=== PATIENT | female | born 1995 | race Caucasian/White ===

== ENCOUNTER 2018-12-07 12:54 | Emergency (ER) | payer OTHER, SELFPAY ==
[2018-12-07 13:00] VITALS: BP 112/69; PULSE 86; RESP 17; TEMP 36.2; O2SAT 99; BMI 37.8
[2018-12-07 13:16] LABS: Microscopic, Urine URINE MICROSCOPIC (MICROSCOPIC)
[2018-12-07 13:19] LABS: Appearance,Urine CLEAR (Clear); Bilirubin,Urine Negative (Negative); Blood, Urine Negative (Negative); Color,Urine STRAW (Yellow); Glucose,Urine (UA) Negative (Negative); Ketones,Urine Negative (Negative); Leukocyte Esterase,Urine Negative (Negative); Nitrate,Urine Negative (Negative); Protein,Urine Negative (Negative); Urobilinogen,Urine 0.2 EU/dl (0.2)
--- NOTE | 2018-12-07 13:23 | HMH.EDGENADL ---
ED Disposition Clinical Impression: Abdominal cyst Disposition: Home, Self-Care Condition on Discharge: Good Instructions: DI for Abdominal Pain-Adult Additional Instructions: Follow-up with your primary care provider to have an outpatient MRI with pancreatic protocol for further evaluation of the cyst of your pancreas or spleen seen on CT scan. Additional instructions for ABDOMINAL PAIN: See your physician as soon as possible for further evaluation. Return immediately if worsening abdominal pain, vomiting, shortness of breath, fever, vomiting of blood or abdominal distention. Prescriptions: Ketorolac Tromethamine [Toradol 10mg tablet] 10 mg PO Q6HP PRN #10 tab PRN Reason: Moderate Pain Referrals: Manasa Edwards [Primary Care Provider] - - Critical Care Critical Care Time: No Attestation: On , the high probability of a clinically significant, sudden or life threatening deterioration of the following system(s) required my full and direct attention, intervention and personal management. The time I documented below is in addition to time spent performing reported procedures but includes the following listed in this critical care notation. Medical Decision Making - Charles Inquiry Pt receiving controlled substance: No Vital Signs: 12/07/18 13:00 12/07/18 14:17 12/07/18 15:35 Temperature 97.2 F L Temperature Source Oral Pulse Rate [Left Brachial] 86 57 L 72 Respiratory Rate 17 16 Blood Pressure [Left Arm] 112/69 95/55 L 112/71 Blood Pressure Mean [Left Arm] 83 68 84 Blood Pressure Source [Left Arm] Automatic Cuff Automatic Cuff Blood Pressure Position [Left Arm] Sitting Sitting 02 Sat by Pulse Oximetry 99 100 100 Oxygen Delivery Method Room Air Room Air - Lab Data Lab Results 12/07/18 13:08: Urine Color Straw, Urine Appearance Clear, Urine pH 7.0, Ur Specific [place] 1.010, Urine Protein Negative, Urine Glucose (UA) Negative, Urine Ketones Negative, Urine Blood Negative, Urine Nitrate Negative, Urine Bilirubin Negative, Urine Urobilinogen 0.2, Ur Leukocyte Esterase Negative, Urine WBC Occasional, Ur Squamous Epith Cells 3-5, Urine Bacteria Trace 12/07/18 13:21: WBC 8.0, RBC 4.35, Hgb 13.4, Hct 40.7, MCV 93.5, MCH 30.8, MCHC 33.0, RDW 12.5, Plt Count 249, MPV 7.5, Neut % (Auto) 64.1, Lymph % (Auto) 28.2, [place] % (Auto) 5.6, Eos % (Auto) 1.7, Baso % (Auto) 0.4, Neut # (Auto) 5.1, Lymph # (Auto) 2.3, [place] # (Auto) 0.5, Eos # (Auto) 0.1, Baso # (Auto) 0.0 12/07/18 13:21: Amylase 49, Lipase 114 12/07/18 13:21: Serum HCG, Qual Negative 12/07/18 13:21: Sodium 139, Potassium 4.1, Chloride 105, Carbon Dioxide 29, Anion Gap 9.1, BUN 11, Creatinine 0.71, Estimated Creat Clear 175, Estimated GFR 101, Est GFR ( Amer) 122, Glucose 88, Calcium 8.8, Total Bilirubin 0.3, AST 13 L, ALT 23, Alkaline Phosphatase 82, Total Protein 7.3, Albumin 3.6, Globulin 3.7 H, Albumin/Globulin Ratio 1.0 L Result diagrams: 12/07/18 13:21 12/07/18 13:21 Orders (Tests/Meds): ED MEDICATIONS Discontinued Medications Generic Name Dose Route Start Last Admin Trade Name Freq PRN Reason Stop Dose Admin Ioversol 75 ml 12/07/18 14:47 12/07/18 14:48 Rad-Optiray 350 100ml Vial IV 12/07/18 14:48 75 ml ONCE ONE Administration Protocol Ketorolac Tromethamine 30 mg 12/07/18 14:05 12/07/18 14:14 Toradol 30mg/Ml Vial IV 12/07/18 14:06 30 mg ONCE ONE Administration Sodium Chloride 1,000 ml 12/07/18 14:05 12/07/18 14:14 Sod Chlor 0.9% 1000ml Bag IV 12/07/18 14:06 1,000 ml BOLUS ONE Administration Sodium Chloride 10 ml 12/07/18 14:47 12/07/18 14:48 Rad-Saline Flush 10ml Syringe IV 12/07/18 14:48 10 ml ONCE ONE Administration - CT Data CT Scan: Abdomen, Pelvis Time Received: 15:[address] Reviewed: Yes: I have viewed the radiologist's interpretation Findings Narrative: IMPRESSION: 1. Complex lesion in the left upper quadrant as described above with soft tissue
[2018-12-07 13:31] LABS: Basophils % 0.4 % (0.1-2.0); Eosinophils # 0.1 K/mm3 (0.0-0.4); Eosinophils % 1.7 % (0.1-12.0); Hematocrit 40.7 % (37.0-47.0); Hemoglobin 13.4 g/dL (12.2-16.2); Lymphocytes # 2.3 K/mm3 (0.7-4.5); Lymphocytes % 28.2 % (10-50); Mean Corpuscular Hemoglobin 30.8 pg (27.0-31.2); Mean Corpuscular Volume 93.5 fl (81-99); Mean Platelet Volume 7.5 fl (7.4-10.4); Monocytes # 0.5 K/mm3 (0.1-1.0); Monocytes % 5.6 % (1.7-9.3); Neutrophils # 5.1 K/mm3 (1.8-7.8); Neutrophils % 64.1 % (37.0-80.0); Platelet Count 249 K/mm3 (142-424); Red Blood Count 4.35 M/mm3 (4.20-5.40); Red Cell Distribution Width 12.5 % (11.5-17.5)
--- NOTE | 2018-12-07 13:32 | CT_ITS ---
CT abdomen pelvis w con CLINICAL INDICATION: Left lower quadrant pain ITS.REASON: abdo pain ORDERING PHYSICIAN: Ace Culp MD PATIENT AGE: 23 years COMPARISON: None TECHNIQUE: Axial images obtained with sagittal and coronal reformats. All CT scans at the facility use one or more dose reduction, viz: automated exposure control, ma/kV adjustment per patient size (including targeted exams where dose is matched to indication, i.e. head), or iterative reconstruction technique. PROCEDURE: Oral Contrast: None IV Contrast: 75 mL's Optiray 350. FINDINGS: Lung bases are clear. The liver, gallbladder, spleen,, adrenal glands, and kidneys have an unremarkable appearance. In the left upper quadrant medial to the spleen and anterior to the left kidney there is a a cystic area which measures 2.5 x 3.2 cm. Along the anterior aspect of this cystic area is a crescentic area of soft tissue density. The whole area measures 3.7 x 3.5 cm including the cystic region at the soft tissue density. This is immediately adjacent to the tail the pancreas and is inseparable from the superior and left lateral aspect of the pancreas however, the soft tissue portion of the lesion has a density which is more similar to the spleen as opposed to the pancreas. This could represent a cyst within a splenule. A cyst within the tail the pancreas is also a consideration. There is no evidence of pancreatitis. No inflammatory changes evident around this area. The body and head of the pancreas has an unremarkable appearance Unremarkable appendix. No evidence of diverticulitis. No focal inflammatory change of the pelvis apparent. No pelvic mass or abnormal fluid collection. No acute bony findings. IMPRESSION: 1. Complex lesion in the left upper quadrant as described above with soft tissue and cystic component with the total mass measuring 3.7 x 3.5 cm. This may represent a cyst within a splenule or could represent a cyst within the tail the pancreas. Outpatient MRI with pancreatic protocol may give further value. 2. Otherwise negative with no acute finding
[2018-12-07 13:44] LABS: Amylase 49 U/L (25-115); HCG Qualitative, Serum Negative (Negative); Lipase 114 u/L (73-393)
[2018-12-07 13:47] LABS: Alanine Aminotransferase 23 U/L (12-78); Albumin Level 3.6 gm/dL (3.4-5.0); Alkaline Phosphatase 82 U/L (46-116); Anion Gap 9.1 mEq/L (5-15); Aspartate Amino Transferase 13 U/L (15-37); Bilirubin,Total 0.3 mg/dL (0.2-1.0); Blood Urea Nitrogen 11 mg/dL (7-18); Calcium 8.8 mg/dL (8.5-10.1); Carbon Dioxide 29 mmol/L (21.0-32.0); Chloride 105 mmol/L (98-107); Creatinine Clearance Estimated 175 mL/min (50-200); Creatinine,Serum 0.71 mg/dL (0.55-1.02); Estimated Glomerular Filt Rate 101 ml/min (>60); GFR (African American) 122 ML/MIN (>60); Globulin 3.7 gm/dl (1.3-3.2); Glucose 88 mg/dL (74-106); Potassium 4.1 mmoL/L (3.5-5.1); Sodium 139 mmol/L (136-145); Total Protein,Serum 7.3 gm/dL (6.4-8.2)
[2018-12-07 14:17] VITALS: BP 95/55; PULSE 57; RESP 16; O2SAT 100
[2018-12-07 14:45] LABS: Bacteria,Urine Trace /lpf; WBC,Urine Occasional #/hpf (0-3)
[2018-12-07 15:35] VITALS: BP 112/71; PULSE 72; O2SAT 100
[2018-12-07 16:16] VITALS: BP 124/72; PULSE 71; RESP 17; TEMP 36.6; O2SAT 98
[2018-12-12 06:23] LABS: Neisseria gonorrhoeae, NAA Negative (Negative)
== END 2018-12-07 16:19 | disposition home or self-care (01) ==
PROVIDERS: Emergency Provider Emergency Medicine; PCP Nurse Practitioner Family
DX: K66.8 Other specified disorders of peritoneum (principal); R10.30 Lower abdominal pain, unspecified; F41.8 Other specified anxiety disorders
CPT/HCPCS: 74177; 80053; 81001; 82150; 83690; 84703; 85025; 87491; 87591; 96365; 96375; 99283; Q9967

== ENCOUNTER 2021-12-01 15:47 | Emergency (ER) | payer OTHER, SELFPAY ==
[2021-12-01 16:22] VITALS: BP 102/57; PULSE 89; RESP 17; TEMP 37.2; O2SAT 95; BMI 33.6
--- NOTE | 2021-12-01 16:31 | HMH.EDUTC ---
[facility] Disposition Clinical Impression: Viral syndrome, COVID-19 Disposition: Home, Self-Care Condition on Discharge: Good Instructions: DI for COVID-19 (Suspected or Confirmed ), Preventing the Spread of Coronavirus Discharge Instructions Additional Instructions: Drink plenty of fluids. Take tylenol or ibuprofen for pain or fever. Take the medications as directed. Follow up with your regular doctor. GO TO THE ER FOR ANY WORSENING SYMPTOMS Quarantine until you know the results of your covid-19 test. Notify your school or workplace of your results and follow their instructions regarding return to work/school. Prescriptions: Brompheniramine/Pseudoephed/Dm [Bromfed Dm Cough Syrup] 5 ml PO Q6HP PRN #240 ml PRN Reason: Cough Transmission Status: Received by [id number] Ondansetron [Zofran 4mg ODT] 4 mg PO Q8HP PRN #20 tab PRN Reason: Nausea Transmission Status: Received by [id number] Benzonatate [Benzonatate 100mg cap] 100 mg PO TIDP PRN #30 cap PRN Reason: Cough Transmission Status: Received by [id number] Referrals: Manasa Edwards [Primary Care Provider] - Forms: Work/School Release Time of Disposition: 16:42 Medical Decision Making - Medical Records Medical records reviewed: No: I reviewed the patient's medical records. - Charles Inquiry Pt receiving controlled substance: No Vital Signs: 12/01/21 16:22 12/01/21 16:51 Temperature 98.9 F 98.9 F Temperature Source Oral Pulse Rate 89 Pulse Rate [Left Radial] 89 Respiratory Rate 17 17 Blood Pressure 102/57 L Blood Pressure [Right Arm] 102/57 L Blood Pressure Mean [Right Arm] 72 02 Sat by Pulse Oximetry 95 [facility] HPI - General Stated complaint: wants Covid test,Exposed,VICENTE fever Time Seen by Provider: 12/01/21 16:31 Source of Information: Patient Description of Symptoms (Recalled from Triage Doc. by RN): patient comes in today for a covid test. pateint was exposed 1 week ago. patient complains of chills, congestion, headache, vomitting, body aches. HEENT Symptoms (Recalled from RN notes): Yes Resp Symptoms (Recalled from RN notes): Yes Skin Symptoms (Recalled from RN notes): No MS Symptoms (Recalled from RN notes): No Functional Status (Recalled from RN notes): wnl - History of Present Illness Provider Complaint: She states that she was exposed to covid-19 by her neice having it and being around her about 5 days ago. She denies shortness of breath, but she is having body aches, chills, low grade fever, altered taste and smell, and she feels very fatigued. - Related Data Previous Rx's Medication Instructions Recorded Ketorolac Tromethamine [Toradol 10 mg PO Q6HP PRN #10 tab 12/07/18 10mg tablet] Benzonatate [Benzonatate 100mg 100 mg PO TIDP PRN #30 cap 12/01/21 cap] Brompheniramine/Pseudoephed/Dm 5 ml PO Q6HP PRN #240 ml 12/01/21 [Bromfed Dm Cough Syrup] Ondansetron [Zofran 4mg ODT] 4 mg PO Q8HP PRN #20 tab 12/01/21 Allergies Allergy/AdvReac Type Severity Reaction Status Date / Time No Known Allergies Allergy Verified 10/06/18 01:03 - Worker's Comp Is this a Worker's Comp case?: No [facility] History - Hepatitis A Screen Attestation statement:: This patient has been screened for Hepatitis A risk factors. I have reviewed the patient's past medical history: Yes Medical History: Reports:: Anxiety, Depression, Migraine Denies:: Diabetes Mellitus Type 1, Hyperlipidemia, Hypertension, MRSA, Seizures Laterality Cases: Bilateral: Tonsillectomy Other Surgeries: Yes: Tubal Ligation Amputation: No Fractures: No Comment: adenoectomy - Social History Smoking Status: Current every day smoker Tobacco Type: cigarettes # Packs/Day (cigarettes): 1 Alcohol Intake: never Substance Use Type: former substance user, marijuana Occupational Status: unemployed - Psychiatric History Pschychiatric History:: Reports:: Anxiety, Depression Family Hx:: Cancer, Diabet
[2021-12-01 16:51] VITALS: BP 102/57; PULSE 89; RESP 17; TEMP 37.2
== END 2021-12-01 16:51 | disposition home or self-care (01) ==
PROVIDERS: Emergency Provider Nurse Practitioner Family; PCP Nurse Practitioner Family
DX: U07.1 COVID-19 (principal); F17.210 Nicotine dependence, cigarettes, uncomplicated
CPT/HCPCS: 99212; C9803; G0463; U0003; U0005

== ENCOUNTER 2021-12-21 13:03 | Emergency (ER) | payer OTHER, SELFPAY ==
[2021-12-21 13:05] VITALS: BP 127/87; PULSE 71; RESP 18; TEMP 36.7; O2SAT 99; BMI 32.5
--- NOTE | 2021-12-21 13:14 | XR_ITS ---
FINAL REPORT CLINICAL HISTORY: RIGHT RADIAL WRIST PAIN, FINDINGS: RIGHT WRIST Three views demonstrate no acute fracture or dislocation. The visualized joint spaces are normally aligned. The soft tissues are unremarkable. IMPRESSION: No acute bony abnormality. Reviewed, Interpreted and Dictated by Jay Bah III, MD Transcribed by Francheska Self Authenticated and [facility]
--- NOTE | 2021-12-21 13:46 | PC.NURSE ---
PT TO XR AT THIS TIME
--- NOTE | 2021-12-21 14:29 | HMH.EDGENADL ---
ED Disposition Clinical Impression: Carpal tunnel syndrome Qualifiers: Laterality: right Qualified Code(s): G56.01 - Carpal tunnel syndrome, right upper limb Disposition: Home, Self-Care Condition on Discharge: Good Instructions: DI for Carpal Tunnel Syndrome Additional Instructions: Velcro wrist brace, night and day, until seen by orthopedics. Follow-up with orthopedics, Dr. Muniz, call for appointment. [id number] ibuprofen 800 mg every 8 hours. Ice packs 20 minutes 3-4 times a day. No repetitive use of hands and wrists until seen by orthopedics. Referrals: Provider,MD Vlad [Primary Care Provider] - Domingo Muniz MD [Staff Physician] - Forms: Work/School Release - Critical Care Critical Care Time: No Attestation: On 12/21/21, the high probability of a clinically significant, sudden or life threatening deterioration of the following system(s) required my full and direct attention, intervention and personal management. The time I documented below is in addition to time spent performing reported procedures but includes the following listed in this critical care notation. Medical Decision Making - Charles Inquiry Pt receiving controlled substance: No Vital Signs: 12/21/21 13:05 Temperature 98.1 F Temperature Source Temporal Artery Scan Pulse Rate [Apical] 71 Respiratory Rate 18 Blood Pressure [Right Arm] 127/87 Blood Pressure Mean [Right Arm] 100 02 Sat by Pulse Oximetry 99 Orders (Tests/Meds): ORDERS Category Date Time Status Wrist XR right minimum 3 views [XR wrist RT min 3V] Exams 12/21/21 13:14 Taken Stat - Radiology Data #1 Image(s): Wrist Image Reviewed: Yes I reviewed the patient's radiology image Preliminary interpretation by me: No acute process General Adult HPI - General Chief complaint: Extremity Injury, Upper Stated complaint: WC 12/17 rt wrist pain Time Seen by Provider: 12/21/21 14:29 Mode of Arrival: Ambulatory Limitations: No Limitations Description of Symptoms (Recalled from ER Triage Doc. by RN): PT STATES SHE INJURED HER RIGHT WRIST 3 WEEKS AGO AT WORK AND FOR THE PAST SEVERAL DAYS HAS HAD INCREASED PAIN, NUMBNESS AND TINGLING AND THE PAIN RADIATES DOWN INTO HER ELBOW. - History of Present Illness HPI narrative: States that she recently started a new job where she uses her hands and wrists a lot. For the past 3 weeks she has had some pain and tingling in her wrists and hands. Since Monday her right wrist is worse. She has increased pain in the wrist that radiates down into her hand and up into her arm. She has tingling of her right hand, particularly the thumb, index finger, and middle fingers, radial aspect of the ring finger. She feels like her right hand is weak. No blunt trauma. - Related Data Previous Rx's Medication Instructions Recorded Ketorolac Tromethamine [Toradol 10 mg PO Q6HP PRN #10 tab 12/07/18 10mg tablet] Benzonatate [Benzonatate 100mg 100 mg PO TIDP PRN #30 cap 12/01/21 cap] Brompheniramine/Pseudoephed/Dm 5 ml PO Q6HP PRN #240 ml 12/01/21 [Bromfed Dm Cough Syrup] Ondansetron [Zofran 4mg ODT] 4 mg PO Q8HP PRN #20 tab 12/01/21 Allergies Allergy/AdvReac Type Severity Reaction Status Date / Time No Known Allergies Allergy Verified 10/06/18 01:03 [facility] History - Hepatitis A Screen Attestation statement:: This patient has been screened for Hepatitis A risk factors. I have reviewed the patient's past medical history: Yes Medical History: Reports:: Anxiety, Depression, Migraine Denies:: Diabetes Mellitus Type 1, Hyperlipidemia, Hypertension, MRSA, Seizures Laterality Cases: Bilateral: Tonsillectomy Other Surgeries: Yes: Tubal Ligation Amputation: No Fractures: No Comment: adenoectomy - Social History Smoking Status: Current every day smoker Tobacco Type: cigarettes # Packs/Day (cigarettes): 1 Alcohol Intake: never Substance Use Type: former substance user, marijuana
--- NOTE | 2021-12-21 14:31 | PC.NURSE ---
ED MD AT BEDSIDE
[2021-12-21 14:50] VITALS: BP 125/87; PULSE 78; RESP 17; TEMP 36.8; O2SAT 100
== END 2021-12-21 14:52 | disposition home or self-care (01) ==
PROVIDERS: Emergency Provider Emergency Medicine
DX: G56.01 Carpal tunnel syndrome, right upper limb (principal)
CPT/HCPCS: 29126; 73110; 99283

== ENCOUNTER → 2022-01-13 14:32 | Outpatient (CLI) | payer OTHER, SELFPAY ==
--- NOTE | 2022-01-13 14:33 | US_ITS ---
FINAL REPORT CLINICAL HISTORY: heavy bleeding FINDINGS: Transvaginal sonographic images of the pelvis were obtained. The uterus measures 8.7 x 4.1 x 4.4 cm. The endometrium measures 5 mm, which is within normal limits. No uterine mass is identified. The right ovary measures 3.4 cm in length and left ovary measures 2.7 cm in length. Normal blood flow seen to the ovaries. Multiple small follicles are present in both ovaries which may represent PCOS. There is no evidence of free fluid. IMPRESSION: Multiple small follicles in both ovaries, may represent PCOS. Reviewed, Interpreted and Dictated by Jay Bah III, MD Transcribed by Teresa Blackwell Authenticated and [facility]
== END ==
PROVIDERS: PCP Nurse Practitioner Family; Visit Provider Nurse Practitioner Obstetrics & Gynecology
DX: N92.0 Excessive and frequent menstruation with regular cycle (principal)
CPT/HCPCS: 76830

== ENCOUNTER → 2022-02-09 09:57 | Outpatient (CLI) | payer OTHER, SELFPAY ==
[2022-02-09 10:39] LABS: Basophils # 0.1 K/mm3 (0-0.2); Basophils % 0.9 % (0.1-2.0); Eosinophils # 0.2 K/mm3 (0.0-0.4); Eosinophils % 1.6 % (0.1-12.0); Hematocrit 42.2 % (37.0-47.0); Hemoglobin 13.3 g/dL (12.2-16.2); Lymphocytes # 2.2 K/mm3 (0.7-4.5); Lymphocytes % 20.7 % (10-50); Mean Corpuscular HGB Conc 31.4 g/dL (31.8-35.4); Mean Corpuscular Hemoglobin 33.2 pg (27.0-31.2); Mean Corpuscular Volume 105.6 fl (81-99); Mean Platelet Volume 8.4 fl (7.4-10.4); Monocytes # 0.5 K/mm3 (0.1-1.0); Monocytes % 4.9 % (1.7-9.3); Neutrophils # 7.6 K/mm3 (1.8-7.8); Neutrophils % 71.9 % (37.0-80.0); Platelet Count 318 K/mm3 (142-424); White Blood Count 10.6 K/mm3 (4.8-10.8)
[2022-02-09 10:56] LABS: Chloride 106 mmol/L (98-107)
[2022-02-09 10:57] LABS: Potassium 4.5 mmoL/L (3.5-5.1); Sodium 141 mmol/L (136-145)
[2022-02-09 10:59] LABS: Alanine Aminotransferase 24 U/L (12-78); Alkaline Phosphatase 86 U/L (38-126); Aspartate Amino Transferase 33 U/L (14-36); Blood Urea Nitrogen 12 mg/dl (7-17); Estimated Glomerular Filt Rate 100 ml/min (>60); GFR (African American) 121 ML/MIN (>60)
[2022-02-09 11:00] LABS: Albumin Level 4.2 g/dl (3.5-5.0); Albumin/Globulin Ratio 1.6 (1.1-1.8); Anion Gap 8.5 mEq/L (5-15); Calcium 9.5 mg/dl (8.4-10.2); Carbon Dioxide 31 mmol/L (22.0-30.0); Globulin 2.6 g/dL (1.3-3.2); Glucose 92 mg/dl (74-100); Total Protein,Serum 6.8 g/dl (6.3-8.2)
[2022-02-09 11:01] LABS: Bilirubin,Total < 0.1 mg/dl (0.2-1.3)
[2022-02-10 11:20] LABS: HCG,Quantitative < 2 mIU/ml (0-5.42)
== END ==
PROVIDERS: Visit Provider Nurse Practitioner Obstetrics & Gynecology
DX: N92.0 Excessive and frequent menstruation with regular cycle (principal); Z34.90 Encounter for supervision of normal pregnancy, unspecified, unspecified trimester
CPT/HCPCS: 36415; 80053; 84702; 85025; C9803; U0003; U0005

== ENCOUNTER 2022-02-11 10:43 | Observation (INO) | payer OTHER, SELFPAY ==
[2022-02-09 10:30] VITALS: BMI 31.5
[2022-02-11] VITALS (24 sets, daily range): BP systolic 100–127; BP diastolic 54–89; PULSE 51–97; RESP 12–20; TEMP 36.2–43; O2SAT 95–100
--- NOTE | 2022-02-11 08:00 | HMH.ANESCL ---
[facility] Anesthesia Checklist - Structural Data Admitted From: Home Planned Operative Procedure/s: [facility] Consent for Planned Operative Procedure(s) Verified: Yes - Additional verifications Anesthesia Reactions: No Hx Blood Transfusions: No Blood Transfusion Reaction: No - Airway Assessment C-Spine Mobility Assessed: Yes TMJ Mobility Assessed: Yes Dentition: Good Dentition - Neurological Assessment Level of Consciousness: Awake, Alert, Appropriate - Anesthesia Plan Anesthesia Risk discussed: Yes Anesthesia Plan: Verified ASA Class: II Anesthesia Type: General w/block [facility] History I have reviewed the patient's past medical history: Yes Medical History: Reports:: Anxiety, Depression, Migraine Denies:: Cancer, Diabetes Mellitus Type 1, Diabetes Mellitus Type 2, Hyperlipidemia, Hypertension, Internal Pacemaker, MRSA, Seizures *Have you ever received a pneumonia vaccine?: No *Have you received a flu vaccine this season?: No Other Medical History: Denies: Blood Transfusion Reaction Anesthesia experience/problems:: none Laterality Cases: Bilateral: Tonsillectomy Other Surgeries: Yes: Tubal Ligation. No: Pacemaker Amputation: No Fractures: No - *Social History Last grade of school completed: High school graduate Smoking Status: Current every day smoker Tobacco Type: cigarettes # Packs/Day (cigarettes): 1 Alcohol Intake: never Substance Use Type: former substance user, marijuana *Occupational Status:: unemployed Housing: house *Travel in the last 8 weeks: None - Psychiatric History Pschychiatric History:: Reports:: Anxiety, Depression Family Hx:: Cancer, Diabetes, Heart Attack, Stroke, Kidney Disease, Hypertension, Asthma
--- NOTE | 2022-02-11 09:42 | HMH.OPNOTE ---
Date of procedure: 02/11/22 Pre-op Diagnosis:: Pelvic pain, dyspareunia, menorrhagia, uterine hypertrophy Post-op Diagnosis:: Pelvic pain, dyspareunia, menorrhagia, uterine hypertrophy Procedure performed:: Laparoscopically assisted vaginal hysterectomy Surgeon:: Sharath Strickland MD Radiologist(s):: Dr. Harp COURT WORKER:: Blayne Heart Anesthesia: GETA Estimated blood loss (mL): 150 Clinical Note:: She is a 26-year-old 2 para 2 lady who has had a previous bilateral salpingectomy. She has severe pain with her periods as well as pain with intercourse. She has extremely heavy periods. On examination her uterus was exquisitely tender. She has tried control pills in the past without much success. As result of this she was offered laparoscopically assisted vaginal hysterectomy. Operative findings:: She had an anteverted bulky uterus. At the cornua where the tubes had been amputated there was a small spot of powder burn lesion possibly consistent with endometriosis. The deep pelvis appeared normal. The ovaries appeared normal. The upper abdomen appeared normal. The fallopian tubes were surgically absent. Operative note:: She was taken to the operating room where general anesthesia was found be adequate. She was prepped and draped in normal sterile fashion in the semilithotomy position. A weighted speculum was placed in the vagina and the anterior lip of the cervix was grasped with a tenaculum. An acorn uterine manipulator was then placed within the cervical os. I then changed gloves. I injected 10 cc of 0.5% ropivacaine around the umbilicus and made a small incision within the umbilicus. I inserted a Veress needle into the abdominal cavity. The abdominal cavity was then insufflated with carbon dioxide gas to a pressure of 20 mmHg. I then inserted an 11 mm trocar under direct vision. I injected through and through the pubic hairline, made a small incision here and inserted a 5 mm trocar under direct vision. I identified the inferior epigastric arteries on the left side, went lateral to these and injected through and through. I then made a small incision and inserted an 11 mm trocar under direct vision. A similar 11 mm trocar was placed on the right side. The left round ligament was then grasped and cut through with harmonic scalpel. This was followed by opening up the peritoneum anteriorly to the midline. This is followed by cutting through the left utero-ovarian ligament. I used Harmonic scalpel on the coagulation mode. I then took down the posterior aspect of the broad ligament to the level of the uterosacral ligament. I then skeletonized the uterine arteries on the left side and placed hemoclips on these. Using the harmonic scalpel on coagulation mode adjacent to the cervix I then took down these uterine arteries. I then further freed up the bladder anteriorly and laterally on the left side. I then turned my attention to the right side where I grasped the right round ligament. I then cut through the right round ligament. I then took down the anterior peritoneum to the midline joining up with the other side. I further dissected the bladder off. The posterior aspect of the right broad ligament was then taken down with harmonic scalpel. I skeletonized the uterine arteries on the right side. I applied hemoclips to the uterine arteries and staying adjacent to the cervix on the right side I took down the uterine arteries with harmonic scalpel on coagulation mode. I further freed up the bladder. We then assured hemostasis. We then turned our attention to the vaginal portion of the surgery. The patient was placed in the lithotomy position and a weighted speculum was placed in the vagina. The anterior and posterior lip of the cervix were grasped with Lucia tenacula. I then injected 20 cc of 1% Xylocaine with epinephrine circumferentially about the cervix. I then circumscribed the cervix. I opened up in the posterior cul
--- NOTE | 2022-02-11 09:46 | HMH.ANESI ---
[facility] Anesthesia Record Part I Intake, IV Amount: 2,000 Estimated blood loss (mL): 150 Urine output (mL): 0 Blood Pressure: 115/72 SaO2: 96 Pulse Rate: 71 Respiratory Rate: 12 Temperature: 97.2 F Patient is:: Awake, Stable Stable to PACU at:: 09:40
--- NOTE | 2022-02-11 09:50 | HMH.HP ---
*Admission Date: 02/11/22 *Chief complaint: Menorrhagia, dyspareunia, pelvic pain, dysmenorrhea *History of present illness: She is a 26-year-old 2 para 2 lady who complains of extremely heavy, painful periods. She is tried control pills in the past which did not seem to help. She is had a previous bilateral salpingectomy. We discussed the various options and she elected to have a laparoscopic-assisted vaginal hysterectomy. [facility] History I have reviewed the patient's past medical history: Yes Medical History: Reports:: Anxiety, Depression, Migraine Denies:: Cancer, Diabetes Mellitus Type 1, Diabetes Mellitus Type 2, Hyperlipidemia, Hypertension, Internal Pacemaker, MRSA, Seizures *Have you ever received a pneumonia vaccine?: No *Have you received a flu vaccine this season?: No Other Medical History: Denies: Blood Transfusion Reaction Anesthesia experience/problems:: none Laterality Cases: Bilateral: Tonsillectomy Other Surgeries: Yes: Tubal Ligation. No: Pacemaker Amputation: No Fractures: No - *Social History Last grade of school completed: High school graduate Smoking Status: Current every day smoker Tobacco Type: cigarettes # Packs/Day (cigarettes): 1 Alcohol Intake: never Substance Use Type: former substance user, marijuana *Occupational Status:: unemployed Housing: house *Travel in the last 8 weeks: None - Psychiatric History Pschychiatric History:: Reports:: Anxiety, Depression Family Hx:: Cancer, Diabetes, Heart Attack, Stroke, Kidney Disease, Hypertension, Asthma Review of Systems - Review of Systems Review of systems:: pertinent systems reviewed and negative unless documented below Meds Home Medications Medication Instructions Recorded Confirmed Type No Known Home Medications 01/10/22 01/18/22 History Allergies Allergy/AdvReac Type Severity Reaction Status Date / Time No Known Allergies Allergy Verified 01/18/22 14:21 Exam Vital signs and Labs for Last 24 Hours: Temp Pulse Resp BP Pulse Ox 97.2 F L 71 12 115/72 99 02/11/22 09:46 02/11/22 09:46 02/11/22 09:46 02/11/22 09:46 02/11/22 06:17 I & O for Last 24 hours: Intake & Output 02/08/22 02/09/22 02/10/22 02/11/22 11:59 11:59 11:59 11:59 Intake Total 1999 Balance 1999 Weight 167 lb - Constitutional no acute distress - *Routine HEENT Exam Head: Present: normocephalic Eye: Present: EOMI, PERRL ENT: Present: mucous membranes moist - *Routine Neck Exam Present: supple, full ROM - *Routine Respiratory Exam Absent: accessory muscle use (good air entry bilaterally), wheezes, crackles - *Routine Cardiovascular Exam Present: RRR. Absent: murmur - *Routine Abdominal Exam Present: soft, normoactive bowel sounds. Absent: tenderness, rebound, guarding, mass - *Routine Rectal Exam Rectal:: deferred - *Routine Genitalia Exam Genitalia:: normal female - *Routine Extremities Exam Present: full ROM. Absent: cyanosis, edema, calf tenderness - *Routine Skin Exam Present: intact (good color) - *Routine Neurological Exam Present: alert, oriented X3 - Routine Psychiatric Exam Present: normal affect - Detailed Rectal Exam Patient deferred: visual exam, digital exam - Detailed Exam Patient deferred: external exam, groin exam, perineal exam Assessment and Plan (1) Dysmenorrhea Status: Acute Category: Medical Code(s): N94.6 - Dysmenorrhea, unspecified (2) Dyspareunia Status: Acute Category: Medical (3) Uterine hypertrophy Status: Acute Category: Medical Code(s): N85.2 - Hypertrophy of uterus (4) Menorrhagia Status: Acute Category: Medical Code(s): N92.0 - Excessive and frequent menstruation with regular cycle - Assessment and plan all Dx Assessment and Plan for all problems:: She is admitted for laparoscopic-assisted vaginal hysterectomy.
--- NOTE | 2022-02-11 10:18 | PC.NURSE ---
1008-detailed report gave to Ayana in OB
[2022-02-11 11:16] LABS: Microscopic,Cath URINE MICROSCOPIC (MICROSCOPIC)
[2022-02-11 11:31] LABS: Appearance,Urine/Cath CLEAR (Clear); Bilirubin,Cath Negative (Negative); Blood, Urine/Cath Negative (Negative); Color,Urine/Cath YELLOW (Yellow); Glucose,Urine/Cath (UA) Negative (Negative); Ketones,Urine/Cath Negative (Negative); Leukocyte Esterase,Cath Negative (Negative); Nitrate,Cath Negative (Negative); Protein,Urine/Cath Negative (Negative); Specific Gravity, Urine/Cath >= 1.030 (1.005-1.030); Urobilinogen,Cath 0.2 EU/dl (0.2)
[2022-02-11 11:42] LABS: Bacteria,Urine/Cath TRACE /lpf; Mucus,Urine/Cath Trace /lpf; Squamous Epithelial Ur./Cath Occasional #/hpf (0-5)
--- NOTE | 2022-02-11 15:15 | P.CONPHA_ITS ---
[facility] Pharmacy VTE Monitoring - Patient Demographics Admission date: 02/11/22 Report Date: 02/11/22 Time: 15:15 Allergies/Adverse Reactions: Patient Allergies No Known Allergies Allergy (Verified 01/18/22 14:21) Height: 1.55 m Weight: 75.75 kg Patient Problems: Current Active Problems Dysmenorrhea (Acute) Dyspareunia (Acute) Uterine hypertrophy (Acute) Menorrhagia (Acute) - VTE Risk Clinical Trial Participant: No - Prophylaxis VTE Prophylaxis Ordered?: Yes Types of VTE Prophylaxis: IPCS Knee High (post op)
--- NOTE | 2022-02-11 15:45 | PC.NURSE ---
Pt sitting up in rocking chair upon entering the room. De Jesus cath discontinued at this time. Pt tolerated well. Pt assisted up to the bathroom, thinking that she had to void. She was only able to void 50mls. Gown changed, bed straightened. Pt now resting in bed for reassessment. Scheduled pain meds and antibiotic given (see mar).... LR continues infusing at 125ml/hr. +BS all quads. 4 lap sites to abdomen, CDI (small amt of old drainage on bottom incision.Tolerating regular diet well. Lungs clear to auscultate bilat and through out. Incentive spirometer provided, usage explained, verbalized understanding. Pt's sig other remains at bs and attentive to pt's needs. She will be spending the night with her.
--- NOTE | 2022-02-11 17:41 | PC.NURSE ---
Lab personnel at to draw H/H
[2022-02-11 18:01] LABS: Hemoglobin 12.2 g/dL (12.2-16.2)
--- NOTE | 2022-02-12 00:26 | PC.NURSE ---
PT TOOK SHOWER EARLIER IN SHIFT AND DRESSINGS WERE NOTED TO BE SATURATED. OLD TELFA DRESSINGS REMOVED AND INCISIONS CLEANSED WITH NORMAL SALINE. INCISIONS X4 ARE APPROXIMATED WITH SLIGHT BRUISING NOTED. STERI STRIPS INTACT. NO SS.X OF INFECTION NOTED. LARGE BANDAIDS PLACED OVER INCISIONS, PT TOLERATED WELL.
[2022-02-12 04:00] VITALS: RESP 18
--- NOTE | 2022-02-12 05:04 | PC.NURSE ---
LATE ENTRY: 0400 PT HAS RESTED WELL THIS SHIFT. NO ACUTE CHANGES FROM PREVIOUS ASSESSMENT. VITAL SIGNS REMAIN STABLE. 4 ABDOMINAL DRESSINGS REMAIN CDI. WILL CONTINUE TO MONITOR.
[2022-02-12 07:14] LABS: Chloride 109 mmol/L (98-107)
[2022-02-12 07:15] LABS: Potassium 3.8 mmoL/L (3.5-5.1); Sodium 136 mmol/L (136-145)
[2022-02-12 07:17] LABS: Blood Urea Nitrogen 11 mg/dl (7-17); Creatinine Clearance Estimated 168 mL/min (50-200); Estimated Glomerular Filt Rate 120 ml/min (>60); GFR (African American) 145 ML/MIN (>60)
[2022-02-12 07:18] LABS: Anion Gap 4.8 mEq/L (5-15); Calcium 8.3 mg/dl (8.4-10.2); Carbon Dioxide 26 mmol/L (22.0-30.0); Glucose 119 mg/dl (74-100)
[2022-02-12 07:34] LABS: Basophils # 0.1 K/mm3 (0-0.2); Basophils % 0.8 % (0.1-2.0); Eosinophils % 0.2 % (0.1-12.0); Hematocrit 34.8 % (37.0-47.0); Lymphocytes % 17.5 % (10-50); Mean Corpuscular HGB Conc 31.6 g/dL (31.8-35.4); Mean Corpuscular Hemoglobin 32.8 pg (27.0-31.2); Mean Corpuscular Volume 103.9 fl (81-99); Mean Platelet Volume 8.7 fl (7.4-10.4); Monocytes # 0.8 K/mm3 (0.1-1.0); Monocytes % 6.9 % (1.7-9.3); Neutrophils # 8.5 K/mm3 (1.8-7.8); Neutrophils % 74.7 % (37.0-80.0); Platelet Count 277 K/mm3 (142-424); Red Blood Count 3.35 M/mm3 (4.20-5.40); White Blood Count 11.4 K/mm3 (4.8-10.8)
[2022-02-12 08:30] VITALS: BP 118/56; PULSE 68; RESP 18; TEMP 36.7; O2SAT 99
[2022-02-12 10:23] VITALS: O2SAT 99
--- NOTE | 2022-02-12 10:28 | PC.NURSE ---
Pt lying in bed watching tv. Denies any needs. Pain medication has been effective for pain and discomfort. States she is ready to go home .
--- NOTE | 2022-02-12 10:47 | PC.NURSE ---
at bs to see pt.
--- NOTE | 2022-02-12 10:58 | HMH.OBDCSM ---
General - General Admission date:: 02/11/22 Discharge date: 02/12/22 HPI - History of Present Illness History of present illness: POD # 1 s/p LAVH She is doing well postoperatively. Pain controlled. She admits to light spotting. Tolerating regular diet. Voiding without difficulty. Passing flatus. Denies fever/chills, chest pain and shortness of breath. No lower extremity swelling. Hospital Course Hospital Course: Patient is a 26-year-old female, , who presented to [facility] for scheduled surgery. She has severe pain with her periods as well as pain with intercourse. She has extremely heavy periods. She has had a previous bilateral salpingectomy. On examination her uterus was exquisitely tender. She has tried control pills in the past without much success. As result of this she was offered laparoscopically assisted vaginal hysterectomy. POD # 1 patient was recovering well for postoperative day. No chief complaints. Vital signs were: BP , HR , R , T . Pain was controlled. She was voiding without difficulty and passing flatus. Heart was regular rate and rhythm. Lungs were clear to auscultation. Abdomen was soft, nondistended, appropriate tenderness to palpation. POD # 2 she was doing well. She had no chief complaints. She was urinating without difficulty. Pain was controlled. She had no nausea, vomiting, fever/chills, chest pain or shortness of breath. Vital signs were stable: BP , HR , R , T . Heart was regular rate and rhythm. Lungs were clear to auscultation. Abdomen was soft, nondistended, appropriate tenderness to palpation. Extremities were non edematous. Normal hospital course. Hemoglobin and Hematocrit results for this visit: Activity: Nothing in the vagina (no intercourse, no tampons), no soaking in water (bath tub, hot tub or swimming pool), no lifting heavier than gallon of milk, stairs are okay. Diet: Resume previous diet Discharge medications: Follow-up: Discharge to home Discharge instructions: Discussed with patient. Objective Vital signs: Temp Pulse Resp BP Pulse Ox 98.0 F 68 18 118/56 L 99 02/12/22 08:30 02/12/22 08:30 02/12/22 08:30 02/12/22 08:30 02/12/22 10:23 Results Labs on day of discharge: Labs from last 24 hours 02/12/22 02/12/22 02/11/22 07:00 07:00 17:48 WBC 11.4 H RBC 3.35 L Hgb 11.0 L 12.2 Hct 34.8 L 38.0 MCV 103.9 H MCH 32.8 H MCHC 31.6 L RDW 13.0 Plt Count 277 MPV 8.7 Neut % (Auto) 74.7 Lymph % (Auto) 17.5 Nolan % (Auto) 6.9 Eos % (Auto) 0.2 Baso % (Auto) 0.8 Neut # (Auto) 8.5 H Lymph # (Auto) 2.0 Nolan # (Auto) 0.8 Eos # (Auto) 0.0 Baso # (Auto) 0.1 Sodium 136 Potassium 3.8 Chloride 109 H Carbon Dioxide 26 Anion Gap 4.8 L BUN 11 Creatinine 0.60 Estimated Creat Clear 168 Estimated GFR 120 Est GFR ( Amer) 145 Glucose 119 H Calcium 8.3 L Urine Color Urine Appearance Urine pH Ur Specific Drayton Urine Protein Urine Glucose (UA) Urine Ketones Urine Blood Urine Nitrate Urine Bilirubin Urine Urobilinogen Ur Leukocyte Esterase Urine RBC Ur Squamous Epith Cells Urine Bacteria 02/11/22 09:07 WBC RBC Hgb Hct MCV MCH MCHC RDW Plt Count MPV Neut % (Auto) Lymph % (Auto) Nolan % (Auto) Eos % (Auto) Baso % (Auto) Neut # (Auto) Lymph # (Auto) Nolan # (Auto) Eos # (Auto) Baso # (Auto) Sodium Potassium Chloride Carbon Dioxide Anion Gap BUN Creatinine Estimated Creat Clear Estimated GFR Est GFR ( Amer) Glucose Calcium Urine Color Yellow Urine Appearance Clear Urine pH 5.0 Ur Specific Drayton >= 1.030 Urine Protein Negative Urine Glucose (UA) Negative Urine Ketones Negative Urine Blood Negative Urine Nitrate Negative Urine Bilirubin Negative Urine Urobilinogen 0.2 Ur Leukocyte Esterase Negati
--- NOTE | 2022-02-12 11:02 | HMH.DCSUM ---
General - General Admission date:: 02/11/22 Discharge date: 02/12/22 HPI HPI: POD # 1 s/p LAVH She is doing well postoperatively. Pain controlled. She admits to light spotting. Tolerating regular diet. Voiding without difficulty. Passing flatus. Denies fever/chills, chest pain and shortness of breath. No lower extremity swelling. Hospital Course Hospital Course: Patient is a 26-year-old female, , who presented to [facility] for scheduled surgery. She has severe pain with her periods as well as pain with intercourse. She has extremely heavy periods. She has had a previous bilateral salpingectomy. On examination her uterus was exquisitely tender. She has tried control pills in the past without much success. As result of this she was offered laparoscopically assisted vaginal hysterectomy. POD # 1 patient was recovering well for postoperative day. She was urinating without difficulty. Pain was controlled. She had no nausea, vomiting, fever/chills, chest pain or shortness of breath. Vital signs were stable: BP 118/56, HR 76, R 18, T 98.0. Heart was regular rate and rhythm. Lungs were clear to auscultation. Abdomen was soft, nondistended, appropriate tenderness to palpation. Extremities were non edematous. Normal hospital course. Hemoglobin and Hematocrit results for this visit: 02/09/22: Hgb 13.3, Hct 42.2 02/12/22: hgb 11.0, Hct 34.8 Objective Vital signs: Temp Pulse Resp BP Pulse Ox 98.0 F 68 18 118/56 L 99 02/12/22 08:30 02/12/22 08:30 02/12/22 08:30 02/12/22 08:30 02/12/22 10:23 no acute distress - *Routine HEENT Exam Head: Present: normocephalic Eye: Absent: conjunctivae pink ENT: Present: mucous membranes moist - *Routine Respiratory Exam Present: CTA bilaterally - *Routine Cardiovascular Exam Present: RRR - *Routine Abdominal Exam Present: soft, normoactive bowel sounds. Absent: tenderness, distended Comments: Bandages covering abdominal incisions without drainage - *Routine Extremities Exam Present: full ROM. Absent: edema, calf tenderness - *Routine Neurological Exam Present: alert, oriented X3 Results Labs on day of discharge: Labs from last 24 hours 02/12/22 02/12/22 02/11/22 07:00 07:00 17:48 WBC 11.4 H RBC 3.35 L Hgb 11.0 L 12.2 Hct 34.8 L 38.0 MCV 103.9 H MCH 32.8 H MCHC 31.6 L RDW 13.0 Plt Count 277 MPV 8.7 Neut % (Auto) 74.7 Lymph % (Auto) 17.5 [place] % (Auto) 6.9 Eos % (Auto) 0.2 Baso % (Auto) 0.8 Neut # (Auto) 8.5 H Lymph # (Auto) 2.0 [place] # (Auto) 0.8 Eos # (Auto) 0.0 Baso # (Auto) 0.1 Sodium 136 Potassium 3.8 Chloride 109 H Carbon Dioxide 26 Anion Gap 4.8 L BUN 11 Creatinine 0.60 Estimated Creat Clear 168 Estimated GFR 120 Est GFR ( Amer) 145 Glucose 119 H Calcium 8.3 L Urine Color Urine Appearance Urine pH Ur Specific Gaines Urine Protein Urine Glucose (UA) Urine Ketones Urine Blood Urine Nitrate Urine Bilirubin Urine Urobilinogen Ur Leukocyte Esterase Urine RBC Ur Squamous Epith Cells Urine Bacteria 02/11/22 09:07 WBC RBC Hgb Hct MCV MCH MCHC RDW Plt Count MPV Neut % (Auto) Lymph % (Auto) [place] % (Auto) Eos % (Auto) Baso % (Auto) Neut # (Auto) Lymph # (Auto) [place] # (Auto) Eos # (Auto) Baso # (Auto) Sodium Potassium Chloride Carbon Dioxide Anion Gap BUN Creatinine Estimated Creat Clear Estimated GFR Est GFR ( Amer) Glucose Calcium Urine Color Yellow Urine Appearance Clear Urine pH 5.0 Ur Specific Gaines >= 1.030 Urine Protein Negative Urine Glucose (UA) Negative Urine Ketones Negative Urine Blood Negative Urine Nitrate Negative Urine Bilirubin Negative Urine Urobilinogen 0.2 Ur Leukocyte Esterase Negative Urine RBC 3-5 Ur Squamous Epith Cells Occasional Urine Bacteria Trace
--- NOTE | 2022-02-12 11:10 | PC.NURSE ---
Saline Lock discontinued at this time. Catheter intact. 2x2 gauze and coban applied. Tolerated well.
--- NOTE | 2022-02-14 09:28 | P.PN_ITS ---
[facility] Anesthesia Record Part II Discharge Time: 10:10 Destination: Surgical Day Care (OP Surgery) PACU nurse assessment reviewed?: Yes Patient Condition:: Good Anesthesia Complications:: None Swallowing reflex intact?: Yes Cyanosis?: No Blood Pressure: 106/69 Pulse Rate: 60 Temperature: 97.2 F Mental Status: Alert & Oriented Pain level:: 0 Nausea and/or vomitting:: None Intake, IV Amount: 0
[2022-02-14 09:29] VITALS: BP 106/69; PULSE 60; TEMP 36.2
== END 2022-02-12 11:53 | disposition home or self-care (01) ==
LOC: OB 11:09
PROVIDERS: Admitting Provider Nurse Practitioner Obstetrics & Gynecology; PCP Nurse Practitioner Family; Visit Provider Nurse Practitioner Obstetrics & Gynecology
PROC: 0UT9FZZ Resection of Uterus, Via Natural or Artificial Opening With Percutaneous Endoscopic Assistance (ICD-10-PCS; CPT 58550; principal; 2022-02-11 07:30)
DX: N92.0 Excessive and frequent menstruation with regular cycle (principal); N94.10 Unspecified dyspareunia; F41.9 Anxiety disorder, unspecified; F32.A Depression, unspecified; F17.200 Nicotine dependence, unspecified, uncomplicated; N85.2 Hypertrophy of uterus
CPT/HCPCS: 58550; 36415; 80048; 80053; 81001; 84702; 85014; 85018; 85025; 94761; 96374; C9803; G0283; G0378; J2405; J2710; U0003; U0005

== ENCOUNTER 2022-02-28 09:38 | Emergency (ER) | payer OTHER, SELFPAY ==
--- NOTE | 2022-02-28 09:51 | EXP.UTC ---
Discharge Plan Disposition Patient Disposition: Home, Self-Care Condition: Good Prescriptions Prescriptions: New methylprednisolone 4 mg Tablets,Dose Pack 4 mg PO DIRECTED Qty: 21 0RF triamcinolone acetonide 0.025 % cream 1 applic topical BID PRN (Reason: itching) Qty: 15 0RF No Action oxycodone 5 mg tablet 5 mg PO Q4HP PRN (Reason: Moderate To Severe Pain) 4 Days Qty: 14 0RF citalopram [Celexa] 10 mg tablet 10 mg PO DAILY Qty: 30 3RF acetaminophen 325 MG tablet 1,000 mg PO Q6H Qty: 30 0RF ibuprofen 400 MG tablet 800 mg PO Q8HP PRN (Reason: Moderate Pain) Qty: 20 0RF Referrals Follow up/Referrals: Provider,Referral, MD [Primary Care Provider] - See instructions Activity Restrictions/Add. Instructions Additional Instructions/Restrictions: Try to identify and avoid contact with the offending substance (poison kelly). Don't start the oral steroids until tomorrow. Don't put the topical steroids (triamcinolone) on your face or your groin. Follow up with your regular doctor. GO TO THE ER FOR ANY WORSENING SYMPTOMS OR CONCERNS Clinical Impressions Clinical Impression: Contact dermatitis Instructions Patient Instructions: DI for Poison Kelly Allergy Discharge ED Provider: John Paul Santos [facility] General Stated complaint: itchy all over, rash all over Time Seen by Provider: 02/28/22 09:50 History of Present Illness Provider Complaint: She c/o having an itchy rash on the backs of both her thighs, her face and her fore arms. She was around poison kelly 4 days ago. Related Data Previous Rx's Medication Instructions Recorded acetaminophen 325 mg tablet 1,000 mg PO Q6H #30 tabs 02/12/22 ibuprofen 400 mg tablet 800 mg PO Q8HP PRN Moderate Pain 02/12/22 #20 tabs citalopram 10 mg tablet (Celexa) 10 mg PO DAILY #30 tabs 02/25/22 oxycodone 5 mg tablet 5 mg PO Q4HP PRN Moderate To 02/25/22 Severe Pain 4 days #14 tabs methylprednisolone 4 mg tablets in 4 mg PO DIRECTED #21 tabs 02/28/22 a dose pack triamcinolone acetonide 0.025 % 1 applic topical BID PRN itching 02/28/22 topical cream #15 grams Allergies Allergy/AdvReac Type Severity Reaction Status Date / Time No Known Allergies Allergy Verified 02/28/22 10:27 PFSH PFSH Surgical History History of hysterectomy with oophorectomy Social History Smoking Status: Current every day smoker tobacco type: cigarettes packs per day: 1 alcohol intake: never substance use type: former substance user and marijuana current occupational status: unemployed Travel in the last 8 weeks: None housing: house current occupation: [employer] current occupational exposures/hazards: No caffeine: Yes ROS Obtained: Yes All systems reviewed & no additional complaints except as documented Constitutional Constitutional: Reports system reviewed and no additional complaints, except as documented, Denies chills and Denies fever(s) Eyes Eyes: Denies eye discharge ENT Ears, Nose, Mouth, and Throat: Denies dysphagia, Denies sore throat and Denies throat swelling Cardiovascular Cardiovascular: Denies chest pain and Denies dyspnea Respiratory Respiratory: Denies chest congestion, Denies cough and Denies dyspnea Gastrointestinal Gastrointestingal: Denies abdominal pain, constipation, diarrhea, dysphagia, nausea or vomiting Musculoskeletal Musculoskeletal: Denies arthralgias Integumentary/Breasts Skin/Breast: Reports rash Neurologic Neurologic: Denies paresthesias Allergic/Immunologic Allergic/Immunologic: Denies throat swelling Physical Exam General General appearance: alert and in no apparent distress Head Head exam: atraumatic, normocephalic and normal inspection Eye Eye exam: Present normal appearance, PERRL and EOMI ENT ENT exam: Present normal exam, normal oropharynx, mucous membranes moist, TM's normal bilater
[2022-02-28 10:24] VITALS: BP 108/64; PULSE 62; RESP 17; TEMP 36.7; O2SAT 98; BMI 32.9
[2022-02-28 10:52] VITALS: BP 108/64; PULSE 62; RESP 17; TEMP 36.7
== END 2022-02-28 10:56 | disposition home or self-care (01) ==
PROVIDERS: Emergency Provider Nurse Practitioner Family
DX: L25.9 Unspecified contact dermatitis, unspecified cause (principal)
CPT/HCPCS: 96372; 99212; G0463

== ENCOUNTER → 2022-03-03 17:59 | Outpatient (CLI) | payer OTHER, SELFPAY ==
[2022-03-03 17:22] LABS: Basophils # 0.1 K/mm3 (0-0.2); Basophils % 0.6 % (0.1-2.0); Eosinophils # 0.3 K/mm3 (0.0-0.4); Eosinophils % 2.3 % (0.1-12.0); Hematocrit 38.5 % (37.0-47.0); Hemoglobin 12.5 g/dL (12.2-16.2); Lymphocytes # 2.6 K/mm3 (0.7-4.5); Lymphocytes % 21.3 % (10-50); Mean Corpuscular HGB Conc 32.5 g/dL (31.8-35.4); Mean Corpuscular Hemoglobin 32.2 pg (27.0-31.2); Mean Platelet Volume 8.9 fl (7.4-10.4); Monocytes # 0.7 K/mm3 (0.1-1.0); Monocytes % 5.8 % (1.7-9.3); Neutrophils # 8.5 K/mm3 (1.8-7.8); Neutrophils % 69.9 % (37.0-80.0); Platelet Count 380 K/mm3 (142-424); Red Blood Count 3.89 M/mm3 (4.20-5.40); Red Cell Distribution Width 13.4 % (11.5-17.5); White Blood Count 12.2 K/mm3 (4.8-10.8)
[2022-03-03 17:23] LABS: Alanine Aminotransferase 16 U/L (12-78); Albumin Level 3.9 g/dl (3.5-5.0); Albumin/Globulin Ratio 1.3 (1.1-1.8); Alkaline Phosphatase 83 U/L (38-126); Anion Gap 11.3 mEq/L (5-15); Aspartate Amino Transferase 24 U/L (14-36); Bilirubin,Total 0.4 mg/dl (0.2-1.3); Blood Urea Nitrogen 10 mg/dl (7-17); Carbon Dioxide 25 mmol/L (22.0-30.0); Chloride 107 mmol/L (98-107); Chol/HDL Ratio 3.2 (1-3.5); Cholesterol 149 mg/dl (140-200); Estimated Glomerular Filt Rate 120 ml/min (>60); GFR (African American) 145 ML/MIN (>60); Globulin 2.9 g/dL (1.3-3.2); Glucose 60 mg/dl (74-100); HDL Cholesterol 46 mg/dl (40-60); Potassium 4.3 mmoL/L (3.5-5.1); Sodium 139 mmol/L (136-145); Total Protein,Serum 6.8 g/dl (6.3-8.2); Triglycerides 125 mg/dl (30-150); VLDL Cholesterol 25 mg/dL (0-40)
[2022-03-03 17:40] LABS: 25-OH Vitamin D, Total 38.4 ng/mL (30-100)
[2022-03-03 17:53] LABS: Thyroid Stimulating Hormone 1.07 uIU/mL (0.465-4.68)
[2022-03-04 13:13] LABS: Direct LDL Cholesterol 70.41 mg/dL (100-129)
== END ==
PROVIDERS: PCP Physician Assistant; Visit Provider Physician Assistant
DX: Z00.00 Encounter for general adult medical examination without abnormal findings (principal); E66.9 Obesity, unspecified; Z68.34 Body mass index [BMI] 34.0-34.9, adult; Z79.899 Other long term (current) drug therapy
CPT/HCPCS: 80053; 80061; 82306; 84443; 85025

== ENCOUNTER 2022-06-24 05:00 | Emergency (ER) | payer OTHER, SELFPAY ==
[2022-06-24 05:10] VITALS: BP 96/51; PULSE 96; RESP 16; TEMP 37.2; O2SAT 97; BMI 29.9
--- NOTE | 2022-06-24 05:20 | HMH.EDGENADL ---
Discharge Plan Disposition Chief Complaint: Headache Prescriptions Prescriptions: No Action citalopram [Celexa] 10 mg tablet 10 mg PO DAILY Qty: 30 3RF Referrals Follow up/Referrals: Karlee Chatterjee PA [Primary Care Provider] - See instructions Discharge ED Provider: Va Monsalve Adult HPI General Chief complaint: Headache Stated complaint: fever x2days; headache Time Seen by Provider: 06/24/22 05:00 Mode of Arrival: Family Vehicle Source of Information: Patient Limitations: No Limitations Description of Symptoms (Recalled from ER Triage Doc. by RN): 26 yo female presents with complaints of severe headache and cold symptoms, along with 1 episode of vomiting and general malaise. Patient denies any past medical history. Denies any surgical history. Denies allergies to medications. Denies any routine medications. Further states her son is influenza and strep positive and currently being treated with pneumonia. Patient is A&ox4. Verbal, speech clear. Skin w/d/pink. Afebrile.Denies issues with diarrhea. History of Present Illness HPI narrative: 26 yo female presenting to the ED for headache, cough and congestion for 2d. Patients son recently diagnosed w/ strep. Patient denies any abdominal pain, bowel changes, urinary sx or other infectious symptoms. Reduced po intake. Patient also has been taking too much tylenol and nyqil to assist with symptoms w/ no relief. No rashes, sore throat or other concerns. complaint: cough, headache Onset (ago): day(s) Related Data Previous Rx's Medication Instructions Recorded citalopram 10 mg tablet (Celexa) 10 mg PO DAILY #30 tabs 02/25/22 Allergies Allergy/AdvReac Type Severity Reaction Status Date / Time No Known Allergies Allergy Verified 04/01/22 11:06 [facility] Disclaimer: The information contained in this section may have been updated after the patient was seen, as this information can be updated by other users. Medical History Carpal tunnel syndrome Family history of diabetes mellitus Surgical History History of hysterectomy with oophorectomy Family History Other Cancer Social History Smoking Status: Smoker, status unknown tobacco type: cigarettes packs per day: 1 alcohol intake: never substance use type: former substance user and marijuana current occupational status: unemployed Travel in the last 8 weeks: None housing: house current occupation: [employer] current occupational exposures/hazards: No caffeine: Yes ROS Obtained: Yes All systems reviewed & no additional complaints except as documented Physical Exam General General appearance: alert and in no apparent distress Head Head exam: atraumatic and normal inspection Eye Eye exam: Present normal appearance ENT ENT exam: Present normal exam, normal oropharynx and mucous membranes moist Neck Neck exam: Present normal inspection and full ROM Chest Chest inspection: Present normal inspection and symmetric chest wall rise Respiratory Respiratory exam: Present normal lung sounds bilaterally Cardiovascular Cardiovascular exam: Present regular rate and normal rhythm Abdominal Exam Abdominal exam: Present soft and normal bowel sounds Extremities Exam Extremities exam: Present normal inspection and full ROM Back Exam Back exam: Present normal inspection and full ROM Neurological Exam Neurological exam: Present alert and oriented X3 Skin Skin exam: Present warm and intact Medical Decision Making Medical Records Medical records reviewed: Yes I reviewed the patient's medical records. Charles Inquiry Pt receiving controlled substance: No Vital Signs: 06/24/22 05:10 Temperature 98.9 F Temperature Source Oral Pulse Rate [Right Brachial] 96 H Respiratory Rate 16 Blo
[2022-06-24 05:48] LABS: Coronavirus 19, PCR Not Detected (NotDetected); Influenza A, PCR Not Detected (NotDetected); Influenza B, PCR Not Detected (NotDetected)
[2022-06-24 06:00] LABS: Strep Scrn Group A (Rapid) Positive (Negative)
[2022-06-24 06:07] VITALS: BP 97/54; PULSE 96; RESP 16; TEMP 37.2; O2SAT 96
== END 2022-06-24 06:17 | disposition left against medical advice (07) ==
PROVIDERS: Emergency Provider Student in an Organized Health Care Education/Training Program; PCP Physician Assistant
DX: J02.0 Streptococcal pharyngitis (principal); B95.0 Streptococcus, group A, as the cause of diseases classified elsewhere; J18.9 Pneumonia, unspecified organism; R50.9 Fever, unspecified; R51.9 Headache, unspecified; R09.81 Nasal congestion; Z20.822 Contact with and (suspected) exposure to COVID-19; F17.210 Nicotine dependence, cigarettes, uncomplicated; Z83.3 Family history of diabetes mellitus
CPT/HCPCS: 87430; 96361; 96374; 96375; 99284; C9803; U0003; U0005